=== PATIENT | female | born 1985 | race Caucasian/White ===

== ENCOUNTER → 2017-04-17 | Outpatient (CLI) | payer OTHER ==
[2017-04-17 12:38] LABS: BASOPHILS # (AUTO) 0.04 x10^3/uL (0-0.1); BASOPHILS % (AUTO) 0 % (0-1); EOSINOPHILS # (AUTO) 0.05 x10^3/uL (0-0.4); EOSINOPHILS % (AUTO) 0 % (1-7); LYMPHOCYTES # (AUTO) 2.23 x10^3/uL (1-3.4); LYMPHOCYTES % (AUTO) 19 % (22-44); MD NO; MEAN CORPUSCULAR HEMOGLOBIN 30.4 pg (27.0-34.8); MEAN CORPUSCULAR HGB CONC 33.8 g/dL (32.4-35.8); MEAN CORPUSCULAR VOLUME 89.9 fL (80-100); MEAN PLATELET VOLUME 8.7 fL (7.4-10.4); MONOCYTES # (AUTO) 0.68 x10^3/uL (0.2-0.8); MONOCYTES % (AUTO) 6 % (2-9); NEUTROPHILS # (AUTO) 8.77 x10^3/uL (1.8-6.8); NEUTROPHILS % (AUTO) 75 % (42-75); PLATELET COUNT 264 x10^3/uL (130-400); RED BLOOD COUNT 4.23 x10^6/uL (3.82-5.3); RED CELL DISTRIBUTION WIDTH 13.7 % (9.6-15.2)
[2017-04-17 12:40] LABS: MICROSCOPIC NOT IND
[2017-04-17 12:41] LABS: CULTURE INDICATED? NO
== END | disposition home or self-care (01) ==
LOC: LAB 09:32
PROVIDERS: ATTEND Obstetrics & Gynecology
DX: Z34.82 Encounter for supervision of other normal pregnancy, second trimester (principal); Z3A.00 Weeks of gestation of pregnancy not specified
CPT/HCPCS: 36415; 81003; 85025; 86592; 86762; 86850; 86900; 87340; 87806; G0475

== ENCOUNTER 2017-08-30 05:16 | Inpatient (IN) | payer OTHER ==
[~2017-08-30] VITALS: Ht 162.6 cm; Wt 84.5 kg
[2017-08-30] MEDS ORDERED: OXYTOCIN 30U/ 0.9% NaCL 500ML 500 ML IV ONE (05:53)
[2017-08-30] MEDS ORDERED: ALUMINUM/MAG/SIMETHICONE 30 ML UDC PO PRN (06:00)
[2017-08-30] MEDS ORDERED: CALCIUM CARBONATE 500 MG TAB.CHEW PO PRN (06:00)
[2017-08-30] MEDS ORDERED: ONDANSETRON 2MG/ML, 2ML IVPush PRN (06:00)
[2017-08-30] MEDS ORDERED: TERBUTALINE 1 MG/ML, 1ML SQ PRN (06:00)
[2017-08-30] MEDS ORDERED: TERBUTALINE 1 MG/ML, 1ML IVPush PRN ×2 (06:00)
[2017-08-30] MEDS ORDERED: FENTANYL PF 100 MCG/2ML IV PRN (06:00)
[2017-08-30] MEDS ORDERED: MISOPROSTOL 200 MCG TABLET ONE (06:03)
[2017-08-30] MEDS ORDERED: NEWBORN KIT ONE (06:03)
[2017-08-30] MEDS ORDERED: LIDOCAINE/PF 1%, 30ML ONE (06:03)
[2017-08-30 06:18] LABS: BASOPHILS # (AUTO) 0.09 x10^3/uL (0-0.1); BASOPHILS % (AUTO) 1 % (0-1); EOSINOPHILS # (AUTO) 0.08 x10^3/uL (0-0.4); EOSINOPHILS % (AUTO) 1 % (1-7); LYMPHOCYTES # (AUTO) 2.02 x10^3/uL (1-3.4); LYMPHOCYTES % (AUTO) 17 % (22-44); MD NO; MEAN CORPUSCULAR HEMOGLOBIN 28.4 pg (27.0-34.8); MEAN CORPUSCULAR HGB CONC 33.2 g/dL (32.4-35.8); MEAN CORPUSCULAR VOLUME 85.6 fL (80-100); MEAN PLATELET VOLUME 8.1 fL (7.4-10.4); MONOCYTES % (AUTO) 6 % (2-9); NEUTROPHILS # (AUTO) 9.05 x10^3/uL (1.8-6.8); NEUTROPHILS % (AUTO) 76 % (42-75); PLATELET COUNT 284 x10^3/uL (130-400); RED BLOOD COUNT 4.15 x10^6/uL (3.82-5.3)
[2017-08-30] MEDS: LACTATED RINGERS 1,000 ML IV SCH ×5 (06:19→21:53)
[2017-08-30 06:28] VITALS: BP 128/80
[2017-08-30] MEDS ORDERED: PLEASE ENTER ALLERGIES MC SCH (06:30)
[2017-08-30 07:15] VITALS: BP 118/77
[2017-08-30] MEDS ORDERED: PREN1TAB60 PO (07:56)
[2017-08-30] MEDS ORDERED: OXYTOCIN 30U/ 0.9% NaCL 500ML 500 ML ONE (08:21)
[2017-08-30] MEDS ORDERED: OXYTOCIN 30U/ 0.9% NaCL 500ML 500 ML IV PRN (09:10)
[2017-08-30] MEDS ORDERED: FENTANYL PF 100 MCG/2ML ONE ×2 (11:54→12:52)
[2017-08-30] MEDS: FENTANYL PF 100 MCG/2ML IVPush PRN ×2 (12:00→12:56)
[2017-08-30] MEDS ORDERED: FENTANYL/BUPIV./NS/PF 250 ML EPIDCONT SCH (13:50)
[2017-08-30] MEDS ORDERED: FENTANYL/BUPIV./NS/PF 250 ML EPIDCONT ONE (13:55)
[2017-08-30] MEDS ORDERED: BUPIVACAINE/PF 0.25% ONE (13:55)
[2017-08-30] MEDS ORDERED: EPHEDRINE 50 MG/ML, 1ML IVPush PRN (14:00)
[2017-08-30] MEDS ORDERED: NALOXONE 0.4 MG/ML, 1ML IVPush PRN (14:00)
[2017-08-30] MEDS ORDERED: LACTATED RINGERS 1,000 ML IVBOLUS PRN (14:00)
[2017-08-30] MEDS: OXYTOCIN 30U/ 0.9% NaCL 500ML 500 ML IV SCH (16:23)
[2017-08-30] MEDS ORDERED: OXYTOCIN 10 UNITS/ML, 1ML IM PRN (16:30)
[2017-08-30] MEDS ORDERED: METHYLERGONOVINE 0.2 MG/ML IM PRN (16:30)
[2017-08-30] MEDS ORDERED: DOCUSATE 100 MG CAPSULE PO PRN (16:30)
[2017-08-30] MEDS ORDERED: ACETAMINOPHEN 325 MG TABLET PO PRN (16:30)
[2017-08-30] MEDS ORDERED: HYDROcodone/APAP 5/325 TABLET PO PRN ×2 (16:30)
[2017-08-30] MEDS ORDERED: ONDANSETRON 2MG/ML, 2ML IV PRN (16:30)
[2017-08-30] MEDS ORDERED: CARBOPROST TROMETHAMINE 250 MCG/ML, 1ML IM PRN (16:30)
[2017-08-30] MEDS ORDERED: MISOPROSTOL 200 MCG TABLET PR PRN (16:30)
[2017-08-30 17:45] VITALS: BP 130/70
[2017-08-30 20:00] VITALS: BP 108/39
[2017-08-31 00:10] VITALS: BP 109/72
[2017-08-31 00:45] LABS: BASOPHILS # (AUTO) 0.07 x10^3/uL (0-0.1); BASOPHILS % (AUTO) 1 % (0-1); EOSINOPHILS # (AUTO) 0.04 x10^3/uL (0-0.4); EOSINOPHILS % (AUTO) 0 % (1-7); LYMPHOCYTES # (AUTO) 1.85 x10^3/uL (1-3.4); LYMPHOCYTES % (AUTO) 13 % (22-44); MD NO; MEAN CORPUSCULAR HEMOGLOBIN 28.8 pg (27.0-34.8); MEAN CORPUSCULAR HGB CONC 33.4 g/dL (32.4-35.8); MEAN CORPUSCULAR VOLUME 86.1 fL (80-100); MEAN PLATELET VOLUME 7.9 fL (7.4-10.4); MONOCYTES # (AUTO) 1.16 x10^3/uL (0.2-0.8); MONOCYTES % (AUTO) 8 % (2-9); NEUTROPHILS % (AUTO) 79 % (42-75); PLATELET COUNT 230 x10^3/uL (130-400); RED BLOOD COUNT 4.07 x10^6/uL (3.82-5.3); RED CELL DISTRIBUTION WIDTH 13.9 % (9.6-15.2)
[2017-08-31] MEDS: OXYTOCIN 30U/ 0.9% NaCL 500ML 500 ML IV SCH (02:23)
[2017-08-31] MEDS: IBUPROFEN 600 MG TABLET PO PRN ×2 (03:04→09:36)
[2017-08-31 04:20] VITALS: BP 113/71
[2017-08-31] MEDS: LACTATED RINGERS 1,000 ML IV SCH (05:53)
[2017-08-31 08:53] VITALS: BP 118/77
[2017-08-31] MEDS ORDERED: PRENATAL VIT/IRON/FA 1 EACH TABLET PO SCH (09:00)
[2017-08-31 12:30] VITALS: BP 112/72
[2017-08-31 17:00] VITALS: BP 110/70
[2017-08-31] MEDS ORDERED: IBUP-1222 PO (18:01)
[2017-08-31] MEDS ORDERED: HYDR-3240 PO (18:05)
[2017-08-31] MEDS ORDERED: SENN-87 PO (18:07)
== END 2017-08-31 18:43 | disposition home or self-care (01) | DRG 775 ==
LOC: LDOP 05:16 → LDIP 05:47 → 2NW 17:40
PROVIDERS: ADMIT Obstetrics & Gynecology; ATTEND Obstetrics & Gynecology
PROC: 3E0R3BZ Introduction of Anesthetic Agent into Spinal Canal, Percutaneous Approach (ICD-10-PCS; principal; 2017-08-30)
PROC: 0KQM0ZZ Repair Perineum Muscle, Open Approach (ICD-10-PCS; 2017-08-30)
PROC: 00HU33Z Insertion of Infusion Device into Spinal Canal, Percutaneous Approach (ICD-10-PCS; 2017-08-30)
PROC: 10E0XZZ Delivery of Products of Conception, External Approach (ICD-10-PCS; 2017-08-30)
DX: O42.913 Preterm premature rupture of membranes, unspecified as to length of time between rupture and onset of labor, third trimester (principal); Z37.0 Single live birth; O24.420 Gestational diabetes mellitus in childbirth, diet controlled; O70.1 Second degree perineal laceration during delivery; Z87.891 Personal history of nicotine dependence; Z3A.36 36 weeks gestation of pregnancy; Z88.0 Allergy status to penicillin
CPT/HCPCS: 36415; 82962; 85025; 86850; 86900; J3010; J2590; J7120